=== PATIENT | male | born 1985 | race African-American/Black ===

== ENCOUNTER 2019-06-12 11:27 | Emergency (ER) | payer OTHER ==
[~2019-06-12] VITALS: Ht 180.3 cm; Wt 86.2 kg
[2019-06-12] MEDS ORDERED: KEFLEX500 M1 PO (14:31)
[2019-06-12 15:07] VITALS: BP 114/80
== END 2019-06-12 15:07 | disposition home or self-care (01) ==
LOC: M.ERS 11:27
DX: S90.851A Superficial foreign body, right foot, initial encounter (principal); F10.10 Alcohol abuse, uncomplicated; W22.09XA Striking against other stationary object, initial encounter; Y93.89 Activity, other specified; Y92.59 Other trade areas as the place of occurrence of the external cause; Y99.8 Other external cause status

== ENCOUNTER 2019-06-25 16:05 | Emergency (ER) | payer OTHER ==
[~2019-06-25] VITALS: Ht 180.3 cm; Wt 86.2 kg
[~2019-06-25 16:05] MED LIST: KEFLEX500 M1 PO
[2019-06-25] MEDS ORDERED: CENTANY30 GM TOP (16:21)
[2019-06-25] MEDS ORDERED: KEFLEX500 M1 PO (16:21)
[2019-06-25] MEDS ORDERED: BACTRIM DS TAB1 EACH PO (16:21)
[2019-06-25 16:51] VITALS: BP 127/83
== END 2019-06-25 16:53 | disposition home or self-care (01) ==
LOC: M.ERS 16:05
DX: L02.31 Cutaneous abscess of buttock (principal)

== ENCOUNTER 2020-12-23 09:40 | Emergency (ER) | payer OTHER ==
[~2020-12-23] VITALS: Ht 180.3 cm; Wt 90.7 kg
[~2020-12-23 09:40] MED LIST changes: +BACTRIM DS TAB1 EACH PO; +CENTANY30 GM TOP
[2020-12-23 10:16] LABS: ABSOLUTE EOSINOPHILS 0.2 thou/uL (0.0-0.7); ABSOLUTE LYMPHOCYTES 1.2 thou/uL (0.8-5.3); ABSOLUTE MONOCYTES 0.5 thou/uL (0.0-1.2); BASOPHILS 0.3 %; EOSINOPHILS 3.9 %; HEMATOCRIT 41.8 % (42.0-52.0); HEMOGLOBIN 14.1 gm/dL (14.0-18.0); LYMPHOCYTES 20.4 %; MCH 32.1 pg (26.0-34.0); MCHC 33.8 g/dL (28.0-37.0); MPV 7.9 fl. (7.2-11.1); NUCLEATED RBCS 0 /100WBC; PLATELET COUNT* 268 thou/uL (150-400); POLYS 67.4 %; RDW-CV 12.2 % (10.5-14.5); WBC 5.9 thou/uL (4.0-11.0)
[2020-12-23 10:27] LABS: ALBUMIN 4.5 g/dL (3.4-5.0); CALCIUM 9.8 mg/dL (8.5-10.1); CREATININE 1.1 mg/dL (0.6-1.3); POTASSIUM 3.8 mmol/L (3.5-5.1); TOTAL BILIRUBIN 0.6 mg/dL (<0.1-1.0); TOTAL PROTEIN 8.1 g/dL (6.4-8.2)
[2020-12-23 10:52] LABS: SALICYLATE 4.3 mg/dL (2.8-20.0)
[2020-12-23 10:53] LABS: ACETAMINOPHEN < 2 ug/mL (10-30); ALCOHOL < 10 mg/dL (<10)
[2020-12-23 14:41] LABS: URINE BILIRUBIN NEGATIVE (Negative); URINE BLOOD TRACE (Negative); URINE CLARITY CLEAR; URINE COLOR YELLOW; URINE GLUCOSE-RANDOM NEGATIVE (Negative); URINE KETONES 1+ (Negative); URINE LEUKOCYTES-REFLEX NEGATIVE (Negative); URINE NITRITE-REFLEX NEGATIVE (Negative); URINE PROTEIN NEGATIVE (Negative)
[2020-12-23 14:46] LABS: AMP/METHAMP Negative (Negative); BARBITURATES Negative (Negative); BENZODIAZEPINES Negative (Negative); COCAINE Negative (Negative); METHADONE Negative (Negative); OPIATES Negative (Negative); PCP Negative (Negative); THC POSITIVE (Negative)
[2020-12-23 21:23] VITALS: BP 119/79
== END 2020-12-23 21:25 ==
LOC: M.ERS 09:40
PROVIDERS: Family Medicine
DX: R45.851 Suicidal ideations (principal); R45.4 Irritability and anger; Z20.822 Contact with and (suspected) exposure to COVID-19